=== PATIENT | female | born 1975 | race Caucasian/White ===

== ENCOUNTER 2017-07-08 20:09 | Inpatient (IN) | payer BC ==
[~2017-07-08] VITALS: Ht 167.6 cm; Wt 60.6 kg
[2017-07-08 20:59] LABS: BASO % 0.2 %; BASO ABS # 0.02 K/uL (0-0.2); EOS % 0.4 %; EOS ABS # 0.04 K/uL (0-0.5); HEMATOCRIT 38.7 % (37-47); HEMOGLOBIN 13.7 g/dL (12.0-16.0); IG# 0.02 K/uL (0.00-0.02); LYMPH % 17.1 %; LYMPH ABS # 1.63 K/uL (1.2-3.4); MEAN CELL VOLUME 88.4 fL (80-100); MEAN CORPUSCULAR HEMOGLOBIN 31.3 pg (25-34); MEAN CORPUSCULAR HGB CONC 35.4 g/dl (32-36); MEAN PLATELET VOLUME 9.7 fL (7.4-10.4); MONO % 6.4 %; MONO ABS # 0.61 K/uL (0.11-0.59); NEUT % 75.7 %; PLATELET COUNT 301 K/uL (130-400); RED CELL DISTRIBUTION WIDTH CV 12.2 % (11.5-14.5); RED CELL DISTRIBUTION WIDTH SD 39.2 fL (36.4-46.3); WHITE BLOOD COUNT 9.52 K/uL (4.8-10.8)
[2017-07-08 21:11] LABS: ALBUMIN 4.4 gm/dl (3.4-5.0); CALCIUM 8.7 mg/dl (8.5-10.1); CREATININE 0.84 mg/dl (0.60-1.20); POTASSIUM 4.2 mmol/L (3.5-5.1)
[2017-07-08] MEDS ORDERED: LORA-741 PO (21:17)
[2017-07-08] MEDS ORDERED: ESCI1TAB10 PO (21:17)
[2017-07-08] MEDS ORDERED: THYR15TA PO (21:17)
[2017-07-08] MEDS ORDERED: NURSING VERBAL MED ORDER ONE (23:00)
[2017-07-08 23:05] VITALS: O2SAT 98
[2017-07-08] MEDS ORDERED: hydrOXYzine HCL 25 MG TAB ONE (23:40)
--- NOTE | 2017-07-09 00:24 | EMERGENCY ROOM VISIT NOTE ---
History Report prepared by León: Iveth Jay Under the Supervision of: Dr. Nj Amado D.O. 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 As per [place] police, they found the patient by [place] in her vehicle where she stated she wanted to kill herself. She notes she is going through a divorce and she feels like she is not happy anymore. She has been having worsening suicidal thoughts and has planned on driving off the road. No other exacerbating or remitting factors. She has a headache but denies fevers, chest pain, shortness of breath , nausea, vomiting, diarrhea, drug use or alcohol use, or hearing voices. 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 Negative drug use or alcohol use, or hearing voices. Review of Systems See HPI for pertinent positives & negatives. A total of 10 systems reviewed and were otherwise negative. Family History Patient reports no known family medical history. Social History Smoking Status: Current Every Day Smoker Smokeless Tobacco Use: Unknown Marital Status: Housing Status: lives with family Current/Historical Medications Scheduled Escitalopram Oxalate (Lexapro), 20 MG PO DAILY Lorazepam (Ativan), 0.5 MG PO DAILY Thyroid (Preston Thyroid), 15 MG PO DAILY Allergies Coded Allergies: No Known Allergies (Unverified , 07/08/17) Physical Exam Vital Signs Date Time Temp Pulse Resp B/P (MAP) Pulse Ox O2 Delivery O2 Flow Rate FiO2 07/08/17 20:14 36.8 55 20 164/86 100 Room Air Physical Exam GENERAL: Sitting up in bed, alert, well appearing, well nourished, no distress, non-toxic. Reserved. EYE EXAM: normal conjunctiva. OROPHARYNX: no exudate, no erythema, lips, buccal mucosa, and tongue normal and mucous membranes are moist NECK: supple, no nuchal rigidity, no adenopathy, non-tender LUNGS: Clear to auscultation. Normal chest wall mechanics HEART: no murmurs, S1 normal and S2 normal ABDOMEN: abdomen soft, non-tender, normo-active bowel sounds, no masses, no rebound or guarding. BACK: Back is symmetrical on inspection and there is no deformity, no midline tenderness, no CVA tenderness. SKIN: no rashes and no bruising UPPER EXTREMITIES: upper extremities are grossly normal. LOWER EXTREMITIES: No pitting edema. NEURO EXAM: Normal sensorium, cranial nerves II-XII grossly intact, normal speech, no gross weakness of arms, no gross weakness of legs. Psych: Admits to suicidal thought and has a plan to crash car. Medical Decision & Procedures Laboratory Results 07/08/17 20:37 Red Blood Count 4.38, Mean Corpuscular Volume 88.4, Mean Corpuscular Hemoglobin 31.3, Mean Corpuscular Hemoglobin Concent 35.4, Mean Platelet Volume 9.7, Neutrophils (%) (Auto) 75.7, Lymphocytes (%) (Auto) 17.1, Monocytes (%) (Auto) 6.4, Eosinophils (%) (Auto) 0.4, Basophils (%) (Auto) 0.2, Neutrophils # (Auto) 7.20, Lymphocytes # (Auto) 1.63, Monocytes # (Auto) 0.61, Eosinophils # (Auto) 0.04, Basophils # (Auto) 0.02 07/08/17 20:37 Test 07/08/17 00:00 07/08/17 20:37 Urine Color YELLOW Urine Appearance CLOUDY (CLEAR) Urine pH 5.0 (4.5-7.5) Urine Specific [place] 1.024 (1.000-1.030) Urine Protein NEG (NEG) Urine Glucose (UA) NEG (NEG) Urine Ketones 1+ (NEG) Urine Occult Blood NEG (NEG) Urine Nitrite NEG (NEG) Urine Bilirubin NEG (NEG) Urine Urobilinogen NEG (NEG) Urine Leukocyte Esterase TRACE (NEG) Urine WBC (Auto) 1-5 /hpf (0-5) Urine RBC (Auto) 0-4 /hpf (0-4) Urine Hyaline Casts (Auto) 1-5 /lpf (0-5) Urine Epithelial Cells (Auto) >30 /lpf (0-5) Urine Bacteria (Auto) 1+ (NEG) Urine Test POS (NEG) Urine Opiates Screen NEG (NEG) Urine Methadone, Qualitative NEG (NEG) Urine Barbiturates NEG (NEG) Urine Phencyclidine (PCP) Level NEG (NEG) Ur Amphetamine/Methamphetamine NEG (NEG) MDMA (Ecstasy) Screen NEG (NEG) Urine Benzodiazepines Screen NEG (NEG) Urine Cocaine Metabolite NEG (NEG) Urine Marijuana (THC) NEG (NEG) White Blood Count 9.52 K/uL (4.8-10.8) Red Blood Count 4.38 M/uL (4.2-5.4) Hemoglobin 13.7 g/dL (12.0-16.0) Hematocrit 38.7 % (37-47) Mean Corpuscular Volume 88.4 fL (80-100) Mean Corpuscular Hemoglobin 31.3 pg (25-34) Mean Corpuscular Hemoglobin Concent 35.4 g/dl (32-36) Platelet Count 301 K/uL (130-400) Mean Platelet Volume 9.7 fL (7.4-10.4) Neutrophils (%) (Auto) 75.7 % Lymphocytes (%) (Auto) 17.1 % Monocytes (%) (Auto) 6.4 % Eosinophils (%) (Auto) 0.4 % Basophils (%) (Auto) 0.2 % Neutrophils # (Auto) 7.20 K/uL (1.4-6.5) Lymphocytes # (Auto) 1.63 K/uL (1.2-3.4) Monocytes # (Auto) 0.61 K/uL (0.11-0.59) Eosinophils # (Auto) 0.04 K/uL (0-0.5) Basophils # (Auto) 0.02 K/uL (0-0.2) RDW Standard Deviation 39.2 fL (36.4-46.3) RDW Coefficient of Variation 12.2 % (11.5-14.5) Immature Granulocyte % (Auto) 0.2 % Immature Granulocyte # (Auto) 0.02 K/uL (0.00-0.02) Anion Gap 6.0 mmol/L (3-11) Est Creatinine Clear Calc Drug Dose 83.3 ml/min Estimated GFR () 100.8 Estimated GFR (Non- 86.9 BUN/Creatinine Ratio 15.9 (10-20) Calcium Level 8.7 mg/dl (8.5-10.1) Total Bilirubin 0.6 mg/dl (0.2-1) Direct Bilirubin 0.2 mg/dl (0-0.2) Aspartate Amino Transf (AST/SGOT) 18 U/L (15-37) Alanine Aminotransferase (ALT/SGPT) 20 U/L (12-78) Alkaline Phosphatase 58 U/L (45-117) Total Protein 8.0 gm/dl (6.4-8.2) Albumin 4.4 gm/dl (3.4-5.0) Thyroid Stimulating Hormone (TSH) 5.630 uIu/ml (0.300-4.500) Ethyl Alcohol mg/dL < 3.0 mg/dl (0-3) Laboratory results per my review. ED Course ED COURSE: Vital signs were reviewed and showed tachycardia The patients medical record was reviewed The above diagnostic studies were performed and reviewed. ED treatments and interventions as stated above. 2015: The patient was evaluated in room A6. A complete history and physical examination was performed. 2109: I reviewed the patient's case with [facility]. They will evaluate the patient for further management. Upon reevaluation, the patient is agreeable.I discussed my findings with the patient and she understands and agrees with the treatment plan. Based on the patients age, coexisting illnesses, exam and lab findings the decision to treat as an inpatient was made. The patient remained stable while under my care. The patient will be evaluated for further management. Medical Decision Differential diagnosis: Etiologies such as mood disorder, infection, hypoglycemia, electrolyte abnormalities, cardiac sources, intracerebral event, toxicologic, neurologic, as well as others were entertained. Patient is a 42-year-old female that presents the ER after making suicidal statements. She is a clear plan to kill herself by crashing her car. She does want to come in for evaluation. She was brought in by police. CBC along with BMP, LFTs, bilirubin and TSH were unremarkable. was negative. She was aware of this. She does have bacteria in her urine and I did not give her a dose of antibiotics while here for the bacteria in her urine. I did call to [facility] and discuss with [facility] where the patient was admitted on a 201 for mood disorder with suicidal ideations. She will be placed on Keflex 500 mg 3 times daily for 3-5 days. Medication Reconcilliation Current Medication List: was personally reviewed by me Blood Pressure Screening Patient's blood pressure: Elevated blood pressure Blood pressure disposition: Elevated BP felt to be situational Impression Primary Impression: Mood disorder Additional Impression: Suicidal ideations Scribe Attestation The scribe's documentation has been prepared under my direction and personally reviewed by me in its entirety. I confirm that the note above accurately reflects all work, treatment, procedures, and medical decision making performed by me. Departure Information Dispostion Mental Health Acute Care ([facility]) Referrals No Doctor, Assigned (PCP) Patient Instructions [facility] Problem Qualifiers
[2017-07-09 00:44] VITALS: BP 114/84; PULSE 78; TEMP 36.8; Ht 167.6 cm; Wt 60.6 kg
[2017-07-09] MEDS ORDERED: ACETAMINOPHEN 325 MG TAB PO PRN (06:15)
[2017-07-09] MEDS ORDERED: SODIUM CHLORIDE 0.65% NA SOLN 45 ML (OCEAN) PRN (06:15)
[2017-07-09] MEDS ORDERED: ALUMINUM/MAGNESIUM SUSP 30 ML UDC PO PRN (06:15)
[2017-07-09] MEDS ORDERED: MAGNESIUM HYDROXIDE SUSP 30 ML UDC PO PRN (06:15)
[2017-07-09] MEDS ORDERED: BISMUTH SUBSALICYLATE PER ML OMNICELL CHARGE PO PRN (06:15)
[2017-07-09] MEDS ORDERED: hydrOXYzine HCL 25 MG TAB PO PRN ×2 (06:15)
[2017-07-09 07:03] VITALS: BP_SYST 114; BP_SYST 115; BP_DIAS 67; BP_DIAS 73; PULSE 50; PULSE 68; TEMP 36.9
[2017-07-09] MEDS: ARMOUR THYROID 30 MG TAB PO SCH (09:34)
--- NOTE | 2017-07-09 12:02 | Psychiatric History & Physical ---
History Date of Service Jul 09, 2017. Identifying Data Gaby Maki is a 42-year-old white female admitted on Jul 08, 2017 at 22:58, who currently lives in [place], [place] with her male paramour of 7 months and who was admitted to the [facility] on a 201 voluntary commitment after she was brought into the [facility] ED by the police who reportedly were notified by her male paramour that the patient drove away from her home distraught while voicing complaints of "wanting to " via a phone conversation. Information provided by the patient is considered to be reliable. Chief Complaint "I'm much better". History of Present Illness The patient is a 42 year old white female, with past medical history of hypothyroidism and past psychiatric history of anxiety and depression who recently and recently relocated due to an extramarital affair. She is the mother of four children ages 14, 11, 8, 4 and in the past 2 days discovered that she is by her male paramour with whom she resides. The patient details mild anxiety and depression with intermittent passive suicidal ideation throughout the past 16 years in the context of a loveless marriage in which she stayed due to the love of being a mother and for the benefit of her children, her mirian and her biological family. 3 years ago she sought treatment for worsening anxiety and depression in the context of Hyperthyroidism that converted to Hypothyroidism. She reports being treated with multiple SSRI's without relief until Lexapro was tried which stabilized her depressed mood. Her thyroid issues were also adequately treated at that time. She followed with the prescribing PCP and his PA (her brother in law) until a few weeks ago when rather abruptly her brother in law dropped her from the practice and would no longer prescribe her meds. She attempted to get records transferred but was not able to and therefore has been off of her thyroid meds for several days. She was still able to take the Lexapro 20 mg daily. The patient describes her baseline anxiety as more sleeplessness at HS with intermittent periods of worrying but more recently and due to her increase stressors she has been worrying more and restless. Her baseline depression was considered "tolerable" with feelings of being down and depressed but never hopeless as she found great yohana in her children in spite of her unhappiness in the marriage. More recently with family pressures mounting and the divorce finalizing she has been feeling guilty and shameful. She reports being exposed to mean, negative comments by former family supporters which has been really hurting her emotionally and making her feel worthless. Currently, she is elated at the news of this recent and unexpected while simultaneously fretting about the timing of it. She reports her male paramour is also elated. She has not shared the news with anyone else at this time and this does produce some anticipatory anxiety. She admits to mild depression but denies feeling hopeless or suicidal. She denies a history of or current symptoms suggestive of misty, hypomania or psychosis. She denies history of Bipolar Disorder, Eating Disorder or SIB. Past Psychiatric History Current OP Treatment: no current treatment Prior OP Treatment: therapist (Delfin ARROYO regarding her affair) Prior Psych Hospitalizations: none Access to a Gun: Yes (not locked ) Suicide Attempts: No Past Medication Trials celexa, zoloft, prozac, wellbutrin, ativan Past Medical/Surgical History History of Concussion/Seizure: No Allergies Allergies: Coded Allergies: No Known Allergies (Unverified , 07/08/17) Home Medications Scheduled Escitalopram Oxalate (Lexapro), 20 MG PO DAILY Lorazepam (Ativan), 0.5 MG PO DAILY Thyroid (Dyer Thyroid), 15 MG PO DAILY Family History Patient reports no known family medical history. History of Suicide: No History of Substance Abuse: No Psychiatric History: Yes (mother - anxiety /depression;sister anxiety/ depression and ED, brother - anxiety/depression. Grandmother hospitalized with depression. 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 Examination Physical Examination A physical exam was performed in the ER prior to admission to the unit by Dr. Nj Amado. I accept that physical as correct/medical clearance for the inpatient physical exam. Vital Signs Vital Signs Past 12 Hours Date Time Temp Pulse Resp B/P (MAP) Pulse Ox O2 Delivery O2 Flow Rate FiO2 07/09/17 07:03 36.9 50 16 114/67 68 115/73 07/09/17 00:44 36.8 78 18 114/84 Laboratory Results Last 24 Hours Test 07/08/17 20:37 White Blood Count 9.52 K/uL Red Blood Count 4.38 M/uL Hemoglobin 13.7 g/dL Hematocrit 38.7 % Mean Corpuscular Volume 88.4 fL Mean Corpuscular Hemoglobin 31.3 pg Mean Corpuscular Hemoglobin Concent 35.4 g/dl Platelet Count 301 K/uL Mean Platelet Volume 9.7 fL Neutrophils (%) (Auto) 75.7 % Lymphocytes (%) (Auto) 17.1 % Monocytes (%) (Auto) 6.4 % Eosinophils (%) (Auto) 0.4 % Basophils (%) (Auto) 0.2 % Neutrophils # (Auto) 7.20 K/uL Lymphocytes # (Auto) 1.63 K/uL Monocytes # (Auto) 0.61 K/uL Eosinophils # (Auto) 0.04 K/uL Basophils # (Auto) 0.02 K/uL RDW Standard Deviation 39.2 fL RDW Coefficient of Variation 12.2 % Immature Granulocyte % (Auto) 0.2 % Immature Granulocyte # (Auto) 0.02 K/uL Sodium Level 137 mmol/L Potassium Level 4.2 mmol/L Chloride Level 106 mmol/L Carbon Dioxide Level 25 mmol/L Anion Gap 6.0 mmol/L Blood Urea Nitrogen 13 mg/dl Creatinine 0.84 mg/dl Est Creatinine Clear Calc Drug Dose 83.3 ml/min Estimated GFR () 100.8 Estimated GFR (Non- 86.9 BUN/Creatinine Ratio 15.9 Random Glucose 94 mg/dl Calcium Level 8.7 mg/dl Total Bilirubin 0.6 mg/dl Direct Bilirubin 0.2 mg/dl Aspartate Amino Transf (AST/SGOT) 18 U/L Alanine Aminotransferase (ALT/SGPT) 20 U/L Alkaline Phosphatase 58 U/L Total Protein 8.0 gm/dl Albumin 4.4 gm/dl Thyroid Stimulating Hormone (TSH) 5.630 uIu/ml Ethyl Alcohol mg/dL < 3.0 mg/dl Mental Examination During interview pt is: alert and oriented, cooperative Appearance: appropriately dressed, appropriately groomed Eye contact is: good Motor behavior is: no abnormal motor movements Speech: normal in rate, rhythm & volume Affect: flat Mood is: dysphoric Thought process: goal directed Thought content: reality based without delusions Suicidal thought are: denied, Plan: denied, Intent: denied Homicidal thoughts are: denied, Plan: denied, Intent: denied Hallucinations: denies auditory, denies visual Cognition: memory grossly intact, attention grossly intact Intelligence estimated to be: consistent with level of education Insight: good Judgement: good Impression / Recommendations Impression The patient is a 42 year old white female with admitted to the [facility] on a 201 voluntary commitment after voicing passive suicidal thoughts in context of overwhelming pressure, guilt and shamefulness stemming from a recent divorce due to an ongoing extramarital affair. The patient has 3 year history of anxiety and depression and had been treated ineffectively with various SSRI's until Lexapro was introduced approximately 2 years ago which made a difference in symptoms control. Most recently, she reports being off of her thyroid medication as she could not get a renewal for the prescription which in her opinion has greatly affected her mood. The patient reports passive suicidal ideation over the past several years but kept this to herself in the context of an unhappy marriage. She denies having a plan or intent at any of those times and feels that her Mirian and [employer] views do not support the act of Suicide. Although the patient appears to be stabilizing in mood today, she has been off of her meds. She is also newly something she found out only yesterday and although this is "great news" she acknowledges that she is under duress and the timing isn't perfect. She is also obviously overwhelmed with the divorce, custody issues with her 4 children and the lack of familial support. I think that it is reasonable to monitor for ongoing mood changes and to introduce her to group therapy for the exposure and development of coping skills. Inventory Assets Strengths: kids, mirian Needs: more family understanding, health Risk Factors Assessment : Yes /single/: Yes Higher / Fall in social status: No Access to guns: Yes (Not locked) Mental Health Diagnoses: Yes Substance use disorders: No Previous attempt: No Family history of suicide: No Previous psychiatric stay: Yes (Grandmother -- depression) Hopelessness: No Smoker: Yes (1-2 a day recent increase from 3 per month) Protective Factors Assessment Employed: Yes Stable relationships: Yes Supportive family: No Good rapport with provider: No Absence of risk factors above: No Recommendations (1) MDD (major depressive disorder), recurrent episode, moderate The patient is admitted to [facility] ([facility] unit) on q 15 min checks (behavioral with suicide precautions) for safety. The patient will participate in group, recreational and milieu therapies and will be offered additional individual and family sessions as clinically appropriate. The patient has reported depression symptoms x 16 years with recent escalation in symptoms producing passive suicidal ideation and and a decrease in coping skills in the context of overwhelming psychosocial stressors and uncontrolled hypothyroidism due to lack of medication. Risks/benefits/alternatives reviewed re: antidepressants for the treatment of depression and/or anxiety. The patient agreed to resuming Lexapro 20 mg daily. (2) Patient is very early in her -- possibly 1-2 weeks. We discussed the risks to the fetus regarding smoking while , the risks and benefits of the use of SSRI's for depression and anxiety while , the risks of using Benzodiazepines while . She is planning to follow up with her [employer] as an OP. (3) Anxiety - Avoid Benzodiazepines. She was using Ativan 1.0 - 0.5 mg at HS for last few years at HS - Utilize Vistaril prn agitation/anxiety and at HS for sleep (4) Psychosocial stressors Significant stressors where identified which places her at higher risk for suicidality. While on the unit she is encouraged to participate in group therapy in order to identify triggers and to develop adequate coping strategies and also a safety plan. - Recommend OP therapy to deal with these issues. (5) Hypothyroidism The patient has a longstanding history of thyroid disease, initially hyperthyroid and now hypothyroid typically controlled with Levothyroxine. However, she has been off of her thyroid med x a few weeks and currently her TSH level is 5.0. She has noticed in the past that when her thyroid levels are abnormal she also presents with worsening anxiety and depression. Begin Dyer Thyroid 15 mg po daily (6) Bacteria in urine Patient is without UTI complaints but per Dr. Joyner she presented in the ED with 1 + bacteria in her urine and due to the complication of recent in this setting a recommendation has been made to begin Keflex 500 mg po TID x 3 -5 days. The patient is in agreement start this med. CPT Code Initial Hospital Care: 72223 Problem Qualifiers (1) : Weeks of gestation: less than 8 weeks Qualified Codes: Z3A.01 - Less than 8 weeks gestation of
[2017-07-09] MEDS ORDERED: ESCITALOPRAM OXALATE 20 MG TAB PO ONE (14:15)
[2017-07-09] MEDS: CEPHALEXIN MONOHYDRATE 500 MG CAP PO SCH ×2 (15:30→20:50)
[2017-07-10 06:47] VITALS: BP_SYST 101; BP_SYST 114; BP_DIAS 66; BP_DIAS 68; PULSE 51; PULSE 76; TEMP 36.9
[2017-07-10] MEDS: CEPHALEXIN MONOHYDRATE 500 MG CAP PO SCH ×3 (08:46→21:11)
[2017-07-10] MEDS: ARMOUR THYROID 30 MG TAB PO SCH (08:46)
[2017-07-10] MEDS ORDERED: ESCITALOPRAM OXALATE 20 MG TAB PO SCH (09:00)
--- NOTE | 2017-07-10 11:20 | Psychiatric Progress Notes ---
Progress Note Date of Service Jul 10, 2017. Interval History Gaby Maki is a 42-year-old white female admitted on Jul 08, 2017 at 22:58, who currently lives in [place], [place] with her male paramour of 7 months and who was admitted to the [facility] on a 201 voluntary commitment after she was brought into the [facility] ED by the police who reportedly were notified by her male paramour that the patient drove away from her home distraught while voicing complaints of "wanting to " via a phone conversation. Chief Complaint "Okay ". Subjective Patient was seen & assessed interval progress reviewed with Treatment Team. Staff report she attended some groups, but stated her goal of treatment was to go home. She met with the counselor and talked about her stressors, including that her family is upset that she had an affair which led to divorce from her , as they are very close with her . She talked about her guilt, and hopes that the ag service manager will annul her marriage. She also talked about her , which she just recently found out about. She was tearful, and spoke with her on the phone. Her boyfriend then came to visit her, and she requested that the counselor talked with them together. She submitted a 72 hour notice requesting to withdraw from treatment, and has continued to complain to staff that she does not want to be in the hospital. Her family visited and were supportive, but she did not want them to see her boyfriend and had him hide from them on the unit. She was willing for a family meeting with her mother, which is scheduled for this afternoon. On my assessment today, the patient states that she feels claustrophobic in the hospital, does not like being here, and is hoping to be discharged as soon as possible. She admits that she was overwhelmed and made multiple statements about wanting to , including her mother and boyfriend, after which she turned off her phone so police were contacted. She admits to thinking about driving off the road, but denied that she took any action or attempted to harm herself in any way. She attributes this to "immense guilt" she felt after talking with her mother, and her mother telling her that she was "tearing the family apart, and then brought up my kids." She said that she did not want to be admitted to the hospital, but the police told her that she would be committed if she did not sign in. She was very upset that she was not discharged yesterday, stating that the nurse who admitted her told her she could be released after one day. She does understand why others were concerned about her statements and state of mind, but says she is feeling better now, as she was able to talk to her mother yesterday and told her how she was feeling and also about her . Her mother responded by telling her that babies were always a gift from God, which she feels was a positive response. She has a meeting with her mother today, and is hopeful that it will go well. She states that her boyfriend told her he will "take care of the gun." She is willing to follow up with outpatient providers. She denies suicidal thoughts here, but states that she does need to come up with healthy ways to cope with her situation, as it is very stressful and will continue to be so. She finds praying, music, and exercise helpful for stabilizing her mood. She asked additional questions about use of medications during , and about her thyroid disease. Sleep Information Total Hours of Sleep: 7.75 Meal Information Percent of Breakfast Consumed: 100 Percent of Lunch Consumed: 100 Percent of Dinner Consumed: 100 Mental Status Exam During interview pt is: alert and oriented, cooperative Appearance: appropriately dressed, appropriately groomed Eye contact is: good Motor behavior is: no abnormal motor movements Speech: normal in rate, rhythm & volume Affect: flat Mood is: dysphoric Thought process: goal directed Thought content: reality based without delusions Suicidal thought are: denied, Plan: denied, Intent: denied Homicidal thoughts are: denied, Plan: denied, Intent: denied Hallucinations: denies auditory, denies visual Cognition: memory grossly intact, attention grossly intact Intelligence estimated to be: consistent with level of education Insight: good Judgement: good Impression 42 year old white female who has a history of depression and anxiety with no outpatient providers currently, in the midst of a divorce and recently found out she was to her boyfriend, who is admitted to the [facility] on a 201 voluntary commitment after voicing suicidal thoughts in context of stress and conflict within the family . She has had a good response to Lexapro, but then went off all of her medications abruptly due to inability to get a renewal for the prescription. She was brought in by police after they were notified by family that she was driving and making suicidal statements, and signed in voluntarily, but submitted a 72 hour notice the same day she was admitted. She has a family meeting with her mother today, and staff met with her and her boyfriend yesterday. She is very anxious for discharge, and we are attempting to arrange aftercare in her area. She continues to require inpatient treatment at this time in order to mitigate risk factors and ensure a safe discharge plan and coordination with her outpatient supports. Plan (1) MDD (major depressive disorder), recurrent episode, moderate The patient is admitted to [facility] ([facility] mental [facility] unit) on q 15 min checks (behavioral with suicide precautions) for safety. The patient will participate in group, recreational and milieu therapies and will be offered additional individual and family sessions as clinically appropriate. The patient has reported depression symptoms x 16 years with recent escalation in symptoms producing passive suicidal ideation and and a decrease in coping skills in the context of overwhelming psychosocial stressors and uncontrolled hypothyroidism due to lack of medication. Risks/benefits/alternatives reviewed re: antidepressants for the treatment of depression and/or anxiety. The patient agreed to resuming Lexapro 20 mg daily. 07/10 -continue escitalopram, and moved to bedtime as she thinks it makes her sleepy. After discussing the risks and benefits of treatment with escitalopram during , she would like to decrease the dose to 15 mg at bedtime, as she feels a 20 mg dose was making her tired at times. Discussed the risks of doing this, including worsening of mood and anxiety symptoms, and she expressed understanding. -We will again reviewed the risks and benefits of taking escitalopram in , including the risks of untreated depression and anxiety, the severity of her past and recent symptoms, and potential effects on the fetus if she is symptomatic during . We also reviewed what is known about the risks to the fetus due to escitalopram exposure, including areas with the data is lacking. Reviewed potential risk of teratogenesis (although not supported by studies), hemorrhage, , low birthweight, withdrawal syndrome, and persistent pulmonary hypertension of the . Discussed potential effects on the when breast-feeding, as she plans to nurse, including somnolence, feeding difficulties, and weight loss. Discussed the need to monitor the infant during breast-feeding period. Also discussed the importance of utilizing nonpharmacologic methods to manage mood and anxiety symptoms throughout , including therapy. -Boyfriend confirmed that the gun is secure. -Family meeting with mother today. -Refer for therapy and psychiatric care in her area. (2) Patient is very early in her -- possibly 1-2 weeks. We discussed the risks to the fetus regarding smoking while , the risks and benefits of the use of SSRI's for depression and anxiety while , the risks of using Benzodiazepines while . She is planning to follow up with her Visual Merchandising Specialist as an OP. 07/10 -Schedule a follow-up appointment with cheese maker, and send records for coordination of care. (3) Anxiety - Avoid Benzodiazepines. She was using Ativan 1.0 - 0.5 mg at HS for last few years at HS - Utilize Vistaril prn agitation/anxiety and at HS for sleep 07/10 -work on healthy coping skills for managing anxiety and behavioral techniques, due to and desired to minimize medication use. She has not required as needed medication here. -Patient states she had decreased her lorazepam dose to 0.5 mg at bedtime, and understands that it is not recommended for use during , so has been discontinued. No signs of withdrawal. Discussed the possibility that anxiety would worsen as this medication is discontinued, but that it should improve. Reviewed healthy coping skills for anxiety. (4) Psychosocial stressors Significant stressors where identified which places her at higher risk for suicidality. While on the unit she is encouraged to participate in group therapy in order to identify triggers and to develop adequate coping strategies and also a safety plan. - Recommend OP therapy to deal with these issues. (5) Hypothyroidism The patient has a longstanding history of thyroid disease, initially hyperthyroid and now hypothyroid typically controlled with Levothyroxine. However, she has been off of her thyroid med x a few weeks and currently her TSH level is 5.630. She has noticed in the past that when her thyroid levels are abnormal she also presents with worsening anxiety and depression. Begin [place] Thyroid 15 mg po daily 07/10 -continue thyroid supplementation, and arrange follow-up with outpatient PCP. TSH was elevated, but she had been off her thyroid medication for a few weeks. It has been resumed, and she will need to follow up for repeat thyroid studies in 4-6 weeks. (6) Bacteria in urine Patient is without UTI complaints but per Dr. Joyner she presented in the ED with 1 + bacteria in her urine and due to the complication of recent in this setting a recommendation has been made to begin Keflex 500 mg po TID x 3 -5 days. The patient is in agreement start this med. 07/10 -complete course of antibiotic as directed by emergency room physician. Follow-up with PCP and OB after discharge. Discharge / Aftercare Planning Primary Care Physician: Name: Dr Mp Grant Therapist: Name: [facility] Angelika Gates Date of Appointment: July 24, 2017 Time of Appointment: 9:30 am Appointment Notes: [address] [facility] [id number] Gate Agent: Name: none Specialist: Name: Stephen SHARP Appointment Notes: [address] [place] [id number] Visit Code E&M Code: 40394 Inventory Assets Strengths: kids, jaycob Needs: more family understanding, health, outpatient mental health care, safety plan - secure guns Risk Factors Assessment : Yes /single/: Yes Higher / Fall in social status: No Access to guns: Yes Mental Health Diagnoses: Yes Substance use disorders: No Previous attempt: No Family history of suicide: No Previous psychiatric stay: Yes (Grandmother -- depression) Hopelessness: No Smoker: Yes (1-2 a day recent increase from 3 per month) Protective Factors Assessment Employed: Yes Stable relationships: Yes Supportive family: No Good rapport with provider: No Absence of risk factors above: No Data Vital Signs Last 24 Hrs: Date Time Temp Pulse Resp B/P (MAP) Pulse Ox O2 Delivery O2 Flow Rate FiO2 07/10/17 06:47 36.9 51 16 114/68 76 101/66 Meds Administered Last 24 Hrs: Meds Administered (Past 24Hrs) Medications (Trade) Dose Ordered Sig/Christine Route Start Time Stop Time Status Last Admin Dose Admin Hydroxyzine HCl (Vistaril Tab) 50 mg STK-MED ONCE .ROUTE 07/08/17 23:40 07/08/17 23:41 DC 07/08/17 23:42 50 MG Thyroid ([place] Thyroid Tab) 15 mg DAILY PO 07/09/17 09:00 08/08/17 08:59 07/10/17 08:46 15 MG Cephalexin Monohydrate (Keflex Cap) 500 mg TID PO 07/09/17 14:00 07/12/17 14:00 07/10/17 08:46 500 MG Escitalopram Oxalate (Lexapro Tab) 20 mg QAM PO 07/10/17 09:00 08/09/17 08:59 07/10/17 08:46 20 MG Escitalopram Oxalate (Lexapro Tab) 20 mg NOW ONCE PO 07/09/17 14:15 07/09/17 14:16 DC 07/09/17 15:46 20 MG Problem Qualifiers (1) : Weeks of gestation: less than 8 weeks Qualified Codes: Z3A.01 - Less than 8 weeks gestation of
[2017-07-11 06:38] VITALS: BP_SYST 120; BP_SYST 123; BP_DIAS 69; BP_DIAS 74; PULSE 61; PULSE 62; TEMP 36.9
[2017-07-11] MEDS: CEPHALEXIN MONOHYDRATE 500 MG CAP PO SCH (08:47)
[2017-07-11] MEDS: ARMOUR THYROID 30 MG TAB PO SCH (08:47)
[2017-07-11] MEDS ORDERED: LXP10 PO (09:42)
--- NOTE | 2017-07-11 09:44 | Discharge Instructions ---
Discharge Information Report Includes Report will include the: Discharge Instructions & Summary Admission Admission Date / Time: Jul 08, 2017 at 22:58 Reason for Admission: MDD Discharge Discharge Diagnosis / Problem: Major depressive disorder, , UTI Condition at Discharge: Fair Discharge Goals Goal(s): Improve function, Improve disease control, Learn about illness, Therapeutic intervention, Specific goals (Refer for outpatient care) Activity Recommendations Activity Limitations: per Instructions/Follow-up section . Instructions / Follow-Up Instructions / Follow-Up . SPECIAL CARE INSTRUCTIONS: 1. Follow through with your scheduled aftercare appointments. If unable to keep an appointment, please call to reschedule. You will need to follow-up with a psychiatrist, therapist, PCP, and machine try out setter. 2. Take your medication only as prescribed. Medication should not be changed or stopped without the approval of your doctor. In the event of worsening symptoms or concerns about side effects, contact your doctor immediately. You were started on a antibiotic here for a urinary tract infection; complete the whole prescription, even if symptoms resolve. 3. Utilize new healthy coping skills, anger management skills, and stress management skills learned during your hospitalization. Journal feelings and process them with a support person. Identify stressors or situations that may result in relapse, deterioration or inappropriate behaviors and develop a plan to deal with those issues. 4. If your coping skills are ineffective and you are in crisis, contact your outpatient providers for direction. If unable to reach your providers, please call the CAN HELP LINE AT or go to the closest Emergency Room. 5. You should not drink alcohol or take un-prescribed drugs. 6. You have been provided with the Mental Health Advance Directives Pamphlet for your review. AFTERCARE APPOINTMENTS: * Please call your insurance company prior to your scheduled appointment to confirm your aftercare providers are covered. Take your insurance information to your appointments. . Discharge / Aftercare Planning Primary Care Physician: Name: Dr Mp Grant Appointment Notes: follow up as needed Psychiatrist: Name: Trish Chandler - Intake Date of Appointment: July 17, 2017 Time of Appointment: 12:30 pm Appointment Notes: [address] [facility] [address] Therapist: Name Of Therapist: [facility] - Intake Date of Appointment: July 17, 2017 Time of Appointment: 12:30 pm Appointment Comments: [address] [facility] [place] [id number] Technical Solution Architect: Name: none Specialist: Name: Stephen - TOOL HONING MACHINE SET UP OPERATOR (will call back with an appointment) Appointment Notes: [address] [place] [id number] . Follow-Up Care Plan for Follow-Up Care: See above. Current Hospital Diet Patient's current hospital diet: Regular Diet Discharge Diet Recommended Diet: Regular Diet Procedures Procedures Performed: No Pending Studies Pending Studies at Discharge: No Medical Emergencies . Who to Call and When: Medical Emergencies: For questions or emergencies related to your hospital stay, please contact the Inpatient Behavioral Health Unit at [phone]. A biochemistry technician is on-call 03/10 for the Behavioral Health Unit for emergencies At any time you feel your situation is an emergency, you may also call 911 immediately. . Non-Emergent Contact Non-Emergency issues call your: Primary Care Provider, Psychiatrist, Therapist , Specialist (Silo Operator) Past History Medical & Surgical History: (1) (2) Hypothyroidism (3) Bacteria in urine Advance Directives Existing Advance Directive: No Do You Have an Existing Mental: No Existing Living Will: No Existing Power of Sales And Marketing Intern: No Advance Directives Info Given: To Pt/S.O. Advance Directives Reason: Declines as Mental Health Visit. Discharge Summary Admission HPI Per the Admitting provider: The patient is a 42 year old white female, with past medical history of hypothyroidism and past psychiatric history of anxiety and depression who recently and recently relocated due to an extramarital affair. She is the mother of four children ages 14, 11, 8, 4 and in the past 2 days discovered that she is by her male paramour with whom she resides. The patient details mild anxiety and depression with intermittent passive suicidal ideation throughout the past 16 years in the context of a loveless marriage in which she stayed due to the love of being a mother and for the benefit of her children, her jaycob and her biological family. 3 years ago she sought treatment for worsening anxiety and depression in the context of Hyperthyroidism that converted to Hypothyroidism. She reports being treated with multiple SSRI's without relief until Lexapro was tried which stabilized her depressed mood. Her thyroid issues were also adequately treated at that time. She followed with the prescribing PCP and his PA (her brother in law) until a few weeks ago when rather abruptly her brother in law dropped her from the practice and would no longer prescribe her meds. She attempted to get records transferred but was not able to and therefore has been off of her thyroid meds for several days. She was still able to take the Lexapro 20 mg daily. The patient describes her baseline anxiety as more sleeplessness at HS with intermittent periods of worrying but more recently and due to her increase stressors she has been worrying more and restless. Her baseline depression was considered "tolerable" with feelings of being down and depressed but never hopeless as she found great yohana in her children in spite of her unhappiness in the marriage. More recently with family pressures mounting and the divorce finalizing she has been feeling guilty and shameful. She reports being exposed to mean, negative comments by former family supporters which has been really hurting her emotionally and making her feel worthless. Currently, she is elated at the news of this recent and unexpected while simultaneously fretting about the timing of it. She reports her male paramour is also elated. She has not shared the news with anyone else at this time and this does produce some anticipatory anxiety. She admits to mild depression but denies feeling hopeless or suicidal. She denies a history of or current symptoms suggestive of misty, hypomania or psychosis. She denies history of Bipolar Disorder, Eating Disorder or SIB. Hospital Course (1) MDD (major depressive disorder), recurrent episode, moderate The patient is admitted to [facility] ([facility] mental health unit) on q 15 min checks (behavioral with suicide precautions) for safety. The patient will participate in group, recreational and milieu therapies and will be offered additional individual and family sessions as clinically appropriate. The patient has reported depression symptoms x 16 years with recent escalation in symptoms producing passive suicidal ideation and and a decrease in coping skills in the context of overwhelming psychosocial stressors and uncontrolled hypothyroidism due to lack of medication. Risks/benefits/alternatives reviewed re: antidepressants for the treatment of depression and/or anxiety. The patient agreed to resuming Lexapro 20 mg daily. 07/10 -continue escitalopram, and moved to bedtime as she thinks it makes her sleepy. After discussing the risks and benefits of treatment with escitalopram during , she would like to decrease the dose to 15 mg at bedtime, as she feels a 20 mg dose was making her tired at times. Discussed the risks of doing this, including worsening of mood and anxiety symptoms, and she expressed understanding. -We will again reviewed the risks and benefits of taking escitalopram in , including the risks of untreated depression and anxiety, the severity of her past and recent symptoms, and potential effects on the fetus if she is symptomatic during . We also reviewed what is known about the risks to the fetus due to escitalopram exposure, including areas with the data is lacking. Reviewed potential risk of teratogenesis (although not supported by studies), hemorrhage, , low birthweight, withdrawal syndrome, and persistent pulmonary hypertension of the . Discussed potential effects on the infant when breast-feeding, as she plans to nurse, including somnolence, feeding difficulties, and weight loss. Discussed the need to monitor the during breast-feeding period. Also discussed the importance of utilizing nonpharmacologic methods to manage mood and anxiety symptoms throughout , including therapy. -Boyfriend confirmed that the gun is secure. -Family meeting with mother today. -Refer for therapy and psychiatric care in her area. 07/11 -discharged to home, mother is picking her up. -30 day prescription issued for escitalopram. -Referred to [facility] in [place] for outpatient therapy and psychiatric care; intake scheduled for 07/17/2017. (2) Patient is very early in her -- possibly 1-2 weeks. We discussed the risks to the fetus regarding smoking while , the risks and benefits of the use of SSRI's for depression and anxiety while , the risks of using Benzodiazepines while . She is planning to follow up with her Silo Operator as an OP. 07/10 -Schedule a follow-up appointment with machine try out setter, and send records for coordination of care. (3) Anxiety - Avoid Benzodiazepines. She was using Ativan 1.0 - 0.5 mg at HS for last few years at HS - Utilize Vistaril prn agitation/anxiety and at HS for sleep 07/10 -work on healthy coping skills for managing anxiety and behavioral techniques, due to and desired to minimize medication use. She has not required as needed medication here. -Patient states she had decreased her lorazepam dose to 0.5 mg at bedtime, and understands that it is not recommended for use during , so has been discontinued. No signs of withdrawal. Discussed the possibility that anxiety would worsen as this medication is discontinued, but that it should improve. Reviewed healthy coping skills for anxiety. (4) Psychosocial stressors Significant stressors where identified which places her at higher risk for suicidality. While on the unit she is encouraged to participate in group therapy in order to identify triggers and to develop adequate coping strategies and also a safety plan. - Recommend OP therapy to deal with these issues. (5) Hypothyroidism The patient has a longstanding history of thyroid disease, initially hyperthyroid and now hypothyroid typically controlled with Levothyroxine. However, she has been off of her thyroid med x a few weeks and currently her TSH level is 5.630. She has noticed in the past that when her thyroid levels are abnormal she also presents with worsening anxiety and depression. Begin [place] Thyroid 15 mg po daily 07/10 -continue thyroid supplementation, and arrange follow-up with outpatient PCP. TSH was elevated, but she had been off her thyroid medication for a few weeks. It has been resumed, and she will need to follow up for repeat thyroid studies in 4-6 weeks. (6) Bacteria in urine Patient is without UTI complaints but per Dr. Joyner she presented in the ED with 1 + bacteria in her urine and due to the complication of recent in this setting a recommendation has been made to begin Keflex 500 mg po TID x 3 -5 days. The patient is in agreement start this med. 07/10 -complete course of antibiotic as directed by emergency room physician. Follow-up with PCP and OB after discharge. Risk Factors Assessment : Yes /single/: Yes Higher / Fall in social status: No Access to guns: Yes Health problems: No Mental Health Diagnoses: Yes Substance use disorders: No Previous attempt: No Family history of suicide: No Previous psychiatric stay: No Hopelessness: No Smoker: No Protective Factors Assessment Sikh beliefs: Yes : Yes Responsible for young children: Yes Employed: Yes Stable relationships: Yes Supportive family: Yes Good rapport with provider: No Absence of risk factors above: Yes (Risk factors were mitigated by admission to the inpatient unit, starting medications to target mood and anxiety, educating the patient about her diagnoses and the recommended treatment, referring her for outpatient care, addressing her newly discovered , family meetings with boyfriend and then with mother and sister, participation in groups and therapy, working on healthy coping skills and completing a discharge safety plan. Her boyfriend has confirmed that the gun in their home is secured. Her family denies safety concerns with discharge. The patient has consistently denied suicidal thoughts since admission, and has not engaged in self injury. She is and is happy about the , which is also protective for suicide. She is requesting discharge, and as she is no longer at acute risk of harm to herself or others, can be managed as an outpatient at this time. She does not have significant risk factors for harm to others, with no history of violence and no aggression or threats here.) Day of Discharge Assessment Hospital course: The patient was brought into the emergency room by [place] police, who said they found her outside her vehicle, and when she saw police, she started running away. She admitted to suicidal thoughts, stating "I guess I'd drive my car off the road." Her boyfriend was present and met with the ER psych human services case manager. He stated that the patient had been stressed as her soon-to-be ex- would not allow her to see their 4 children daily, they were going through a divorce, and the day prior to presentation she found out she was . She sent text messages to her boyfriend stating "I just want to . " She told her boyfriend she was going to kill herself, and then turned her phone off. She signed in voluntarily, but quickly submitted a 72 hour notice requesting to withdraw from treatment, stating that she did not really want to be in the hospital and only signed in to avoid being involuntarily committed. She was willing to go back on escitalopram, which had been helpful for mood and anxiety in the past. She tolerated it well, but requested to decrease her dose to 15 mg and to move it to bedtime, as she felt it made her sleepy, and wanted to minimize her dose given her . Lorazepam, which she had been taking at bedtime (0.5mg), was discontinued due to her and lack of indication for long-term use. [place] Thyroid was continued, and although TSH was elevated, she reported that she had been off the medication for several weeks due to inability to get the prescription refilled. She was also educated about the risks of smoking while and recommendations for abstinence. She was initially very worried about talking to her family and informing them of her newly discovered , but her mother and sisters then visited and were supportive. Her boyfriend also visited, and they met with counseling staff. She had a family meeting with her mother and sister on 07/10/2017, and talked about her guilt about her affair and the effects on her family. She talked about the issues in her marriage, and her love for her boyfriend. Her mother initially encouraged her to go back to her , but they were able to talk about her feelings about her relationship, and she disclosed her . Her family talked about moving forward, and they talked about how to discuss the changes with her children. Patient said she felt the meeting was helpful. She was calm and cooperative throughout her stay in the hospital, consistently denied suicidal thoughts, and was anxious to be discharged. Date of discharge assessment: The patient reports her mood is "really excited," as she is looking forward to discharge, and feels safe leaving the hospital. She continues to deny suicidal thoughts, is able to review the healthy coping skills and safety plan she has worked on here, and is willing to follow up with outpatient providers. She is tolerating her medication well. She denies symptoms of UTI, and was instructed to complete her course of antibiotics. The transition of care record was reviewed with the patient, and she was instructed to take medications as prescribed until instructed to stop by her physician. Well nourished, well developed WF appearing stated age. Casually dressed and adequately groomed. Calm and cooperative. Seated in NAD, with fair eye contact and no abnormal movements. Speech is normal rate, volume, and tone. Mood is "really excited," and affect is euthymic, stable and congruent. Thoughts are linear, logical and goal directed. The patient denied suicidal and homicidal ideation and was able to review her safety plan. No paranoia, delusions, or hallucinations, and did not appear to be responding to internal stimuli. Cognition was grossly intact. Alert and oriented to person, place and time. Intelligence is consistent with level of education. Insight and and judgment are fair. Laboratory Test 07/08/17 00:00 07/08/17 20:37 Urine Color YELLOW Urine Appearance CLOUDY Urine pH 5.0 Urine Specific [place] 1.024 Urine Protein NEG Urine Glucose (UA) NEG Urine Ketones 1+ Urine Occult Blood NEG Urine Nitrite NEG Urine Bilirubin NEG Urine Urobilinogen NEG Urine Leukocyte Esterase TRACE Urine WBC (Auto) 1-5 Urine RBC (Auto) 0-4 Urine Hyaline Casts (Auto) 1-5 Urine Epithelial Cells (Auto) >30 Urine Bacteria (Auto) 1+ Urine Test POS Urine Opiates Screen NEG Urine Methadone, Qualitative NEG Urine Barbiturates NEG Urine Phencyclidine (PCP) Level NEG Ur Amphetamine/Methamphetamine NEG MDMA (Ecstasy) Screen NEG Urine Benzodiazepines Screen NEG Urine Cocaine Metabolite NEG Urine Marijuana (THC) NEG White Blood Count 9.52 Red Blood Count 4.38 Hemoglobin 13.7 Hematocrit 38.7 Mean Corpuscular Volume 88.4 Mean Corpuscular Hemoglobin 31.3 Mean Corpuscular Hemoglobin Concent 35.4 Platelet Count 301 Mean Platelet Volume 9.7 Neutrophils (%) (Auto) 75.7 Lymphocytes (%) (Auto) 17.1 Monocytes (%) (Auto) 6.4 Eosinophils (%) (Auto) 0.4 Basophils (%) (Auto) 0.2 Neutrophils # (Auto) 7.20 Lymphocytes # (Auto) 1.63 Monocytes # (Auto) 0.61 Eosinophils # (Auto) 0.04 Basophils # (Auto) 0.02 RDW Standard Deviation 39.2 RDW Coefficient of Variation 12.2 Immature Granulocyte % (Auto) 0.2 Immature Granulocyte # (Auto) 0.02 Sodium Level 137 Potassium Level 4.2 Chloride Level 106 Carbon Dioxide Level 25 Anion Gap 6.0 Blood Urea Nitrogen 13 Creatinine 0.84 Est Creatinine Clear Calc Drug Dose 83.3 Estimated GFR () 100.8 Estimated GFR (Non- 86.9 BUN/Creatinine Ratio 15.9 Random Glucose 94 Calcium Level 8.7 Total Bilirubin 0.6 Direct Bilirubin 0.2 Aspartate Amino Transferase (AST) 18 Alanine Aminotransferase (ALT) 20 Alkaline Phosphatase 58 Total Protein 8.0 Albumin 4.4 Thyroid Stimulating Hormone (TSH) 5.630 Ethyl Alcohol mg/dL < 3.0 Total Time Total Time Spent (min): Greater than 30 minutes Tobacco Cessation at Discharge Smoking Status: Light Tobacco Smoker (1-2 a day ) FDA approved Prescription: declined med & out pt counseling (Patient plans to quit, was only smoking <2 cigarettes a day) Problem Qualifiers (1) : Weeks of gestation: less than 8 weeks Qualified Codes: Z3A.01 - Less than 8 weeks gestation of
[2017-07-11] MEDS ORDERED: KFL500 PO (09:45)
[2017-07-11] MEDS ORDERED: ESCITALOPRAM OXALATE 10 MG TAB PO SCH (22:00)
== END 2017-07-11 10:30 | disposition home or self-care (01) | DRG 781 ==
LOC: C.EDA 20:13 → C.MHU 22:58
PROVIDERS: ADMIT Psychiatry & Neurology Child & Adolescent Psychiatry; ATTEND Psychiatry & Neurology Child & Adolescent Psychiatry
DX: O99.341 Other mental disorders complicating pregnancy, first trimester (principal); F33.1 Major depressive disorder, recurrent, moderate; O23.41 Unspecified infection of urinary tract in pregnancy, first trimester; F41.9 Anxiety disorder, unspecified; O99.281 Endocrine, nutritional and metabolic diseases complicating pregnancy, first trimester; E03.9 Hypothyroidism, unspecified; O99.331 Smoking (tobacco) complicating pregnancy, first trimester; F17.200 Nicotine dependence, unspecified, uncomplicated; Z79.899 Other long term (current) drug therapy; Z81.8 Family history of other mental and behavioral disorders; Z3A.01 Less than 8 weeks gestation of pregnancy